=== PATIENT | male | born 1970 | race Caucasian/White ===

== ENCOUNTER 2023-01-26 11:35 | Outpatient (OUT) | payer OTHER, SELFPAY ==
--- NOTE | 2023-01-26 11:44 | XR_ITS ---
[facility] [place] [id number] Patient Name: IVY LEVINE MRN: [id number] date: 1970 Sex: M Assigned Patient Location: [facility] Current Patient Location: [facility] Accession/Order Number: [id number] Exam Date: 01/26/2023 11:52 Report Date: 01/26/2023 14:51 At the request of: HOMER [place] Procedure: XR abdomen 1V EXAM: XR abdomen 1V HISTORY: Left Upper Quadrant Abdominal Pain R10.12 COMPARISON: None. TECHNIQUE: AP view of the abdomen. FINDINGS: Nonobstructive bowel gas pattern is noted. There is punctate calculus of right renal region. There is a calculus over the left hemipelvis. The osseous structures are intact. XR/XR abdomen 1V IMPRESSION: Probable right nephrolithiasis. Possible calculus in the distal ureter. Electronically authenticated by: IVY CLEARY Date: 01/26/2023 14:51
== END 2023-01-26 11:36 | disposition home or self-care (01) ==
LOC: RAD 11:38
PROVIDERS: PCP Family Medicine; Visit Provider Family Medicine
DX: R10.12 Left upper quadrant pain (principal)
CPT/HCPCS: 74018

== ENCOUNTER 2023-02-13 09:26 | Outpatient (OUT) | payer OTHER, SELFPAY ==
--- NOTE | 2023-02-13 | CT_ITS ---
[address] [address] Patient Name: IVY LEVINE MRN: [id number] date: 1970 Sex: M Assigned Patient Location: CT Current Patient Location: Accession/Order Number: [id number] Exam Date: 02/13/2023 10:25 Report Date: 02/15/2023 09:28 At the request of: HOMER [place] Procedure: CT abdomen pelvis wo con EXAMINATION: CT abdomen pelvis wo con HISTORY: R10.12 R10.12 COMPARISON: CT abdomen and pelvis 07/28/2017, KUB 01/26/2023 TECHNIQUE: Following administration of oral contrast only helical imaging of the abdomen and pelvis is performed. Multiplanar reconstructions are submitted. Dose reduction techniques were achieved by using: automated exposure control and/or adjustment of mA and /or kV according to patient size and/or use of iterative reconstruction technique. FINDINGS: ABDOMEN: LOWER CHEST:The imaged lung bases are clear. SOLID ORGANS: Fatty liver and hepatomegaly with areas of sparing adjacent to gallbladder, stable. No hepatic masses. Mild splenomegaly, stable. No splenic lesions. adrenal glands, pancreas, gallbladder, biliary ducts are intact. No renal calculi bilaterally. Mild left hydronephrosis and proximal hydroureter secondary to distal obstruction. BOWEL: The stomach, proximal small bowel, and imaged colon are normal in course and caliber. No bowel wall thickening. Normal retrocecal appendix. MESENTERY AND RETROPERITONEUM: There is no free fluid, fluid collection or adenopathy. The abdominal aorta and IVC are SOFT TISSUE AND ABDOMINAL WALL: No acute abnormality. OSSEOUS STRUCTURES: No acute osseous abnormality. PELVIS: [] GENITOURINARY: Mild left distal hydroureter secondary to obstructing left distal ureteric stone measuring 0.7 x 0.5 cm. The stone is positioned 4.7 cm above the left UVJ. Right distal ureter, urinary bladder, imaged urethra, prostate, seminal vesicles are all within normal limits. No distal urinary tract calculi. BOWEL: Distal small bowel, rectosigmoid colon, appendix are intact. No bowel wall thickening. MESENTERY: There is no free fluid, fluid collection or adenopathy. SOFT TISSUE AND ABDOMINAL WALL: No acute abnormality. VASCULATURE: Noncontrast study OSSEOUS STRUCTURES: No acute osseous abnormality. CT/CT abdomen pelvis wo con IMPRESSION: 1. Mild left hydronephrosis and hydroureter secondary to obstructing distal left 0.7 x 0.5 cm stone. The stone is positioned 4.7 cm above the left UVJ . 2. No other urinary tract calculi. 3. No other acute abdominal or pelvic abnormality. 4. Stable fatty liver and hepatomegaly with normal hepatic morphology. No hepatic masses. 5. Normal appendix. No adenopathy. A call report will be generated for this study and a preliminary impression will be sent to the ordering service. Electronically authenticated by: ITALIA PAULINO Date: 02/15/2023 09:28
== END 2023-02-13 09:27 | disposition home or self-care (01) ==
LOC: CT 09:26
PROVIDERS: PCP Family Medicine; Visit Provider Family Medicine
DX: R10.12 Left upper quadrant pain (principal); N13.2 Hydronephrosis with renal and ureteral calculous obstruction; K76.0 Fatty (change of) liver, not elsewhere classified; R16.0 Hepatomegaly, not elsewhere classified
CPT/HCPCS: 74176

== ENCOUNTER 2023-04-30 07:58 | Outpatient (OUT) | payer OTHER, SELFPAY ==
--- NOTE | 2023-04-30 08:00 | US_ITS ---
[address] [address] Patient Name: IVY LEVINE MRN: [id number] date: 1970 Sex: M Assigned Patient Location: [place] Current Patient Location: [place] Accession/Order Number: [id number] Exam Date: 04/30/2023 08:01 Report Date: 04/30/2023 09:54 At the request of: HOMER [place] Procedure: US renal bladder EXAMINATION: US renal bladder HISTORY: Unspecified Hydronephrosis N13.30 COMPARISON: No relevant comparison available. TECHNIQUE: Ultrasound examination was performed of the bladder. FINDINGS: Right Kidney: Normal in size, contour and cortical echotexture. No focal cortical mass. 5 mm echogenic focus lower pole, nonobstructing nephrolith. The cortex measures 1.6 cm. Height: 6.0 cm Length: 11.5 cm Width: 5.1 cm Left Kidney: Normal in size, contour and cortical echotexture. No focal cortical mass. 5 mm echogenic focus lower pole, nonobstructing nephrolith. The cortex measures 1.2 cm Height: 5.3 cm Length: 10.1 cm Width: 4.9 cm The urinary bladder is normal in appearance. Prevoid volume 139 cc. Post void volume 0 cc. Jets: Visualized bilaterally US/US renal bladder IMPRESSION: Bilateral nonobstructing nephrolithiasis No hydronephrosis Electronically authenticated by: ROSMERY NÚÑEZ Date: 04/30/2023 09:54
== END 2023-04-30 07:59 | disposition home or self-care (01) ==
LOC: US 07:58
PROVIDERS: PCP Family Medicine; Visit Provider Family Medicine
DX: N13.30 Unspecified hydronephrosis (principal); N20.0 Calculus of kidney
CPT/HCPCS: 76770